=== PATIENT | female | born 1985 | race Caucasian/White ===

== ENCOUNTER 2016-12-17 21:59 | Observation (INO) | payer OTHER ==
[~2016-12-17] VITALS: Ht 162.6 cm; Wt 63.5 kg
--- NOTE | ~2016-12-17 | CON ---
PATIENT'S NAME: MALA MAGDALENO [facility] AGE: 31 Y [address] ROOM: [address]3216 [place], [place] [address] LOCATION: [facility] [place] ADMIT DATE: 12/18/2016 Consultation DISCHARGE DATE: FAMILY PHYSICIAN: PHYSICIAN, NO ATTENDING PHYSICIAN: JACE MONTAGUE V DATE OF CONSULTATION: 12/18/2016 REASON FOR CONSULTATION REASON FOR CONSULTATION: FUO and recent travel to [facility]. HISTORY: Ms. Magdaleno is a 31-year-old female, who is otherwise healthy. 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 She has a 7-year-old son at home. She recently took a trip to [facility] where she went to meet her jeremias's family. She was in a town called [facility], and she had flown into a town called [facility] and had visited his family in [facility]. She ate food with them, drink bottled water. She did not do any other activities, did not get in the water, did not eat for many street vendors. She did, however, get mosquito bites and had several of those. She was over there from the to 15 of December. On the way back, she flew to [facility] and was doing okay, but then she was became ill on the way back to [place]. It was a long flight, and her legs were swollen and her muscles ached. Initially, she thought she was just jet lag but did not think so after she started having fevers. She planned to do sight seeing in [place] but felt too ill and stayed in the hotel. Then, she had a 4-hour flight back to [place] and then drove home to [place]. She continued to have feel unwell, and her son asked her to take her temperature. She knows that she had a fever at that point in time. She has had mostly myalgias and arthralgias especially in her lower extremities. She has had a headache. She initially had a sore throat, but this seemed to be a little better with some Mucinex. She has some congestion as well, which improved. She has not had cough. She did have some shortness of breath when she was very congested, but this is better. She is having multiple loose stools that are malodorous. She does not have any abdominal pain. She does not have any urinary tract infection symptoms. She did take doxycycline for malaria prophylaxis while over there. She thinks she might have missed one day. She also did typhoid fever vaccine prior to travel. She otherwise has not had any sick contacts. She has not been at work obviously for the last few weeks. Her son is fine at home, and it is only 2 of them in the home. Infectious Disease was asked to see and assist with further evaluation. PAST MEDICAL HISTORY: Unremarkable. PATIENT'S NAME: MALA MAGDALENO [facility] AGE: 31 Y [address] ROOM: [address] [address] LOCATION: [facility] [place] ADMIT DATE: 12/18/2016 Consultation DISCHARGE DATE: FAMILY PHYSICIAN: PHYSICIAN, LASHAE ATTENDING PHYSICIAN: JACE MONTAGUE V MEDICATIONS: The only med she takes is doxycycline. ALLERGIES: NONE. SOCIAL HISTORY: She does not smoke, drink, use illicit drugs. FAMILY HISTORY: Noncontributory. REVIEW OF SYSTEMS: All remaining review of systems otherwise negative. Pertinent positives and negatives in the HPI. PHYSICAL EXAMINATION: GENERAL: She does not look toxic, a bit tired. She is awake, alert, and oriented. VITAL SIGNS: She has been intermittently febrile here, T-max was up to 103, most recently, she is 100.8; blood pressure is 96/51; pulse 91; respirations 14. HEENT: She has no conjunctiva hemorrhage or icterus. Oropharynx is clear without any exudates or erythema. NECK: Supple. LUNGS: Clear. Heart is regular. Little tachy. ABDOMEN: Soft, not tender, not distended. EXTREMITIES: Without cyanosis, clubbing, or edema. She does not have any inflamed joints. She has no rash. She does have a mosquito bite down by her left ankle. DATA: Hemoglobin is low at 9.8, white count 7.8, platelet counts 157, and differential is unremarkable. She did have a mild leukocytosis on presentation at 14.1. Sed rate is 23. Her potassium is 3.2, chloride is 112, glucose is 103, BUN 5, creatinine 0.5, albumin is 2.7. LFTs and alkaline phosphatase are normal. CRP was 13.8, CPK was 45. Rapid influenza was negative. Procalcitonin was 0.12. She has a malaria smear, which is pending. She has a dengue fever serology, which is pending. Chikungunya, which is pending. Blood cultures have no growth thus far. Chest x-ray showed no acute disease. ASSESSMENT AND PLAN: 1. Fever of unknown origin after recent travel to [facility]. She was PATIENT'S NAME: MALA MAGDALENO [facility] AGE: 31 Y [address] ROOM: [address] [address] LOCATION: [facility] [place] ADMIT DATE: 12/18/2016 Consultation DISCHARGE DATE: FAMILY PHYSICIAN: PHYSICIAN, NO ATTENDING PHYSICIAN: JACE MONTAGUE V on doxycycline prophylaxis for malaria and took typhoid fever vaccine prior to travel. Agree with checking a malaria smear. Need to certainly rule that out, but she was taking some prophylaxis so that makes that a little less likely. Dengue and chikungunya certainly are possible given her headache and joint complaints. Her fever pattern does not really fit malaria either, but it could fit a viral pathology. Her primary symptoms are the joint aches but also the prominent diarrhea. Traveler's diarrhea can occasionally be associated with fever at about 1 in 10 people or so. So, it was possible that that is what we are dealing with here. She has stool studies that are pending. We will start her on azithromycin 500 mg p.o. daily for 3 days and see if this has any impact on her diarrhea and her fevers while await other studies. Agree with holding other antibiotics for now, and we will treat her accordingly. Please call if there are any questions or if any results come back at [phone]. MD EDY MOONEY/jarvis /[id number] d: t: 12/19/16 0157, CONSULTATION REPORT
--- NOTE | ~2016-12-17 | HP ---
PATIENT'S NAME: MALA HOLLINGSWORTH [facility] AGE: 31 Y [address] [place] [facility] [place] [place], [place] [address] [place] [facility] [place]: 12/18/2016 History & Physical DISCHARGE DATE: FAMILY PHYSICIAN: PHYSICIAN, NO ATTENDING PHYSICIAN: JACE MONTAGUE V DATE OF SERVICE: CHIEF COMPLAINT: Febrile illness. HISTORY OF PRESENT ILLNESS: The patient is a previously healthy 31-year-old female. She travelled to [facility] in the [facility] to visit her boyfriend/fiance. She arrived to [facility] the on the 07 of December and returned back on the 14 of December via [place]. She initially felt some swelling in her legs as well as congestion upon completing her flight, but in the course of last 3 days developed worsening myalgias, arthralgias, as well as fevers up to 104.1. She denies any chest pain, shortness of breath, rashes, diaphoresis, or gastrointestinal symptoms. The patient received a typhoid vaccine and has been taking prophylactic doxycycline for her trip. In the ER, she was slightly febrile, and had a mostly unremarkable workup. REVIEW OF SYSTEMS: All systems have been reviewed and are negative aside from pertinent positives mentioned above. PAST MEDICAL HISTORY: The patient denies. PAST SURGICAL HISTORY: The patient denies. CURRENT MEDICATIONS: Doxycycline. FAMILY HISTORY: The father is at bedside and denies any pertinent medical history. PHYSICAL EXAMINATION: VITAL SIGNS: Blood pressure 100/50, temperature 100.8, heart rate is in 120s, saturating 97% on room air, and respirations 16. GENERAL: Appears as a well-developed, well-nourished, young female, in no acute distress, nontoxic, nondiaphoretic. PATIENT'S NAME: MALA HOLLINGSWORTH [facility] AGE: 31 Y [address] ROOM: [address] [address] [place] [facility] [place]: 12/18/2016 History & Physical DISCHARGE DATE: FAMILY PHYSICIAN: PHYSICIAN, NO ATTENDING PHYSICIAN: JACE MONTAGUE V NEUROLOGIC: Nonfocal. EYES: Exam shows no icterus. Extraocular movements are intact. LYMPHATIC: Shows no cervical lymphadenopathy. ENDOCRINE: Exam shows no thyromegaly. LUNGS: Clear to auscultation. HEART: Rate is tachycardic and regular. ABDOMEN: Soft, nontender, nondistended. : Reveals no costovertebral angle tenderness. VASCULAR: Reveals 2+ pedal pulses. No lower extremity edema. SKIN: Reveals no rashes. MUSCULOSKELETAL: Exam is unremarkable. PSYCHIATRIC: Reveals appropriate mood, cognition, and affect. LABORATORY DATA: Workup in the ER included an EKG, which shows sinus tachycardia. A biochemical profile that shows a sodium 134, potassium of 3.1 with a bicarb of 19, and anion gap of 12. White count is 14.1, hemoglobin is 11.9, platelets is 188, unremarkable coags, and procalcitonin is 0.1. Urinalysis is still pending. Chest x-ray is still pending. ASSESSMENT AND PLAN: This is a 31-year-old female who will be admitted for observation with febrile illness subsequent to travel to [place]. I think most likely the pathogens that we are dealing with here are: Possibly malaria. We will send her blood for a thin smear. We will also send HRP2 assay. The patient may also have chikungunya or dengue and we will send those antigens as well. We will provide with symptomatic support with intravenous hydration and Tylenol. We will request an Infectious Disease evaluation in the morning. Additional management will depend on clinical course. Time dedicated to this patient's encounter is 35 minutes. MD TIMOTHY MICHEL/jarvis /[id number] D: [id number] T: [id number] HISTORY & PHYSICAL
--- NOTE | ~2016-12-17 | ER ---
[facility] AGE: 31 Y [address] ROOM: [place] [address] LOCATION: [facility] [place] ADMIT DATE: 12/18/2016 ER/Outpatient Report DISCHARGE DATE: FAMILY PHYSICIAN: PHYSICIAN, NO ATTENDING PHYSICIAN: JACE MONTAGUE V Time of Arrival: 2159 hours. Time of Evaluation: 2226 hours. IDENTIFICATION: A 31-year-old female. CHIEF COMPLAINT: Fever. HISTORY OF PRESENT ILLNESS: The patient is a 31-year-old female, who traveled to [facility], December 05, 2016, to December 15, 2016. When she arrived back on December 15, 2016, she developed some congestion and cough, which has progressed to fever of 104.2 today at 7:45 p.m.; joint pain particularly in her knees and hips; headache; hot and cold flashes; congestion. Cough is nonproductive. She does have purulent nasal drainage. No abdominal pain, nausea, or vomiting. No back pain, no skin rashes, no ill contacts. Recent travel as noted above. PAST MEDICAL HISTORY: Allergies: Sulfa. CURRENT MEDICATIONS: Doxycycline for malaria prophylaxis. MEDICAL PROBLEMS: Denies. PRIOR SURGERIES: section. SOCIAL HISTORY: The patient lives in [place]. Tobacco use denies. Alcohol use, denies. Drug use, denies. ROS: All systems reviewed and negative other than what is noted in the HPI. She did have a typhoid vaccine prior to her travels and is taking the malaria prophylaxis. PATIENT'S NAME: [facility] AGE: 31 Y [address] ROOM: [place] [address] LOCATION: [facility] [place] ADMIT DATE: 12/18/2016 ER/Outpatient Report DISCHARGE DATE: FAMILY PHYSICIAN: PHYSICIAN, NO ATTENDING PHYSICIAN: JACE MONTAGUE V FAMILY HISTORY: No pertinent family history identified. PHYSICAL EXAMINATION: VITAL SIGNS: Height 5 feet 4 inches; weight 65.3 kg; blood pressure 100/54; pulse 122; respirations 18; temperature 100.8, tympanic; saturations 97% on room air. GENERAL: A 31-year-old female, in no acute distress. HEENT: Head: Normocephalic and atraumatic. Ears: TMs are translucent, both ears. Nose: Mucosa erythematous, congested. Purulent drainage is noted. She has no maxillary sinus tenderness, but she does have slight frontal sinus tenderness. Mouth: No lesions. Pharynx, mildly erythematous. No exudate. NECK: Supple. No lymphadenopathy. No nuchal rigidity. LUNGS: Clear to auscultation. Breath sounds are equal. No rhonchi, wheezes, or rales. HEART: Regular rate and rhythm. No heart sinus tachycardia. No murmur, rub, or gallop. ABDOMEN: Bowel sounds are present. Soft, nondistended, nontender. SKIN: [place], warm, and dry. No lesions or rashes noted. NEURO: The patient is alert and oriented x4. Cranial nerves 2 through 12 grossly intact. Motor strength 5/5 throughout. Sensation is intact to light touch. No lower extremity edema. LABORATORY DATA: Two-view chest x-ray, no acute process. Pending radiology over-read. An IV was initiated 500 mL. Normal saline bolus was provided, then 150 mL/h. EKG reveals sinus tachycardia at 126 beats per minute. Nonspecific ST-T wave changes are noted. No prior EKG available for comparison. Hemoglobin 11.9, hematocrit 36.2, platelets 188, white count 14.1 with 87% neutrophils. Sodium 134, potassium 3.1, chloride 103, CO2 19, BUN 5, creatinine 0.8, blood sugar 103. Liver enzymes are normal. CPK 45, CK-MB 0.8. Troponin I less than 0.040. Lactate 1.6. Procalcitonin 0.10. Blood cultures x2 pending. Influenza A and B negative. Malaria testing has been done and will be sent out lab for the dengue fever and chikungunya will also be tested for and those results are pending. IMPRESSION AND PLAN: 1. Febrile illness with temperature of 104.2 in the patient with recent travel to an area where malaria is endemic. Differential diagnosis includes malaria, chikungunya or dengue fever, as well as just a viral illness. Cultures have been drawn and the patient will be admitted per hospitalist. Dr. Montague evaluated her in the emergency room and plans for admission with Infectious Disease consult. 2. Sinus tachycardia. Plan IV hydration and antipyretics. 3. Hypokalemia. Potassium 3.1. PATIENT'S NAME: MALA HOLLINGSWORTH [facility] AGE: 31 Y [address] ROOM: [place] [address] LOCATION: [facility] [place] ADMIT DATE: 12/18/2016 ER/Outpatient Report DISCHARGE DATE: FAMILY PHYSICIAN: PHYSICIANLASHAE ATTENDING PHYSICIAN: JACE MONTAGUE V MD SHARMAINE SALDANA/romanl /[id number] d: 12/18/16 0436 t: 12/18/16 0549, OUTPATIENT REPORT
--- NOTE | ~2016-12-17 | CON ---
PATIENT'S NAME: MALA MAGDALENO [facility] AGE: 31 Y [address] ROOM: [address] [place], [place] [address] [place] [facility] [place]: 12/18/2016 Consultation DISCHARGE DATE: FAMILY PHYSICIAN: PHYSICIAN, NO ATTENDING PHYSICIAN: JACE MONTAGUE V DATE OF CONSULTATION: 12/18/2016 REASON FOR CONSULTATION REASON FOR CONSULTATION: FUO and recent travel to [facility]. HISTORY: Ms. Magdaleno is a 31-year-old female, who is otherwise healthy. 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 She has a 7-year-old son at home. She recently took a trip to [facility] where she went to meet her jeremias's family. She was in a town called [facility], and she had flown into a town called [facility] and had visited his family in [facility]. She ate food with them, drink bottled water. She did not do any other activities, did not get in the water, did not eat for many street vendors. She did, however, get mosquito bites and had several of those. She was over there from the to 15 of December. On the way back, she flew to [facility] and was doing okay, but then she was became ill on the way back to [place]. It was a long flight, and her legs were swollen and her muscles ached. Initially, she thought she was just jet lag but did not think so after she started having fevers. She planned to do sight seeing in [place] but felt too ill and stayed in the hotel. Then, she had a 4-hour flight back to [place] and then drove home to [place]. She continued to have feel unwell, and her son asked her to take her temperature. She knows that she had a fever at that point in time. She has had mostly myalgias and arthralgias especially in her lower extremities. She has had a headache. She initially had a sore throat, but this seemed to be a little better with some Mucinex. She has some congestion as well, which improved. She has not had cough. She did have some shortness of breath when she was very congested, but this is better. She is having multiple loose stools that are malodorous. She does not have any abdominal pain. She does not have any urinary tract infection symptoms. She did take doxycycline for malaria prophylaxis while over there. She thinks she might have missed one day. She also did typhoid fever vaccine prior to travel. She otherwise has not had any sick contacts. She has not been at work obviously for the last few weeks. Her son is fine at home, and it is only 2 of them in the home. Infectious Disease was asked to see and assist with further evaluation. PAST MEDICAL HISTORY: Unremarkable. PATIENT'S NAME: MALA MAGDALENO [facility] AGE: 31 Y [address] ROOM: [address] [address] [place] [facility] [place] DATE: 12/18/2016 Consultation DISCHARGE DATE: FAMILY PHYSICIAN: PHYSICIAN, LASHAE ATTENDING PHYSICIAN: JACE MONTAGUE V MEDICATIONS: The only med she takes is doxycycline. ALLERGIES: NONE. SOCIAL HISTORY: She does not smoke, drink, use illicit drugs. FAMILY HISTORY: Noncontributory. REVIEW OF SYSTEMS: All remaining review of systems otherwise negative. Pertinent positives and negatives in the HPI. PHYSICAL EXAMINATION: GENERAL: She does not look toxic, a bit tired. She is awake, alert, and oriented. VITAL SIGNS: She has been intermittently febrile here, T-max was up to 103, most recently, she is 100.8; blood pressure is 96/51; pulse 91; respirations 14. HEENT: She has no conjunctiva hemorrhage or icterus. Oropharynx is clear without any exudates or erythema. NECK: Supple. LUNGS: Clear. Heart is regular. Little tachy. ABDOMEN: Soft, not tender, not distended. EXTREMITIES: Without cyanosis, clubbing, or edema. She does not have any inflamed joints. She has no rash. She does have a mosquito bite down by her left ankle. DATA: Hemoglobin is low at 9.8, white count 7.8, platelet counts 157, and differential is unremarkable. She did have a mild leukocytosis on presentation at 14.1. Sed rate is 23. Her potassium is 3.2, chloride is 112, glucose is 103, BUN 5, creatinine 0.5, albumin is 2.7. LFTs and alkaline phosphatase are normal. CRP was 13.8, CPK was 45. Rapid influenza was negative. Procalcitonin was 0.12. She has a malaria smear, which is pending. She has a dengue fever serology, which is pending. Chikungunya, which is pending. Blood cultures have no growth thus far. Chest x-ray showed no acute disease. ASSESSMENT AND PLAN: 1. Fever of unknown origin after recent travel to [facility]. She was PATIENT'S NAME: MALA MAGDALENO [facility] AGE: 31 Y [address] ROOM: [address] [address] [place] [facility] [place] DATE: 12/18/2016 Consultation DISCHARGE DATE: FAMILY PHYSICIAN: PHYSICIAN, NO ATTENDING PHYSICIAN: JACE MONTAGUE V on doxycycline prophylaxis for malaria and took typhoid fever vaccine prior to travel. Agree with checking a malaria smear. Need to certainly rule that out, but she was taking some prophylaxis so that makes that a little less likely. Dengue and chikungunya certainly are possible given her headache and joint complaints. Her fever pattern does not really fit malaria either, but it could fit a viral pathology. Her primary symptoms are the joint aches but also the prominent diarrhea. Traveler's diarrhea can occasionally be associated with fever at about 1 in 10 people or so. So, it was possible that that is what we are dealing with here. She has stool studies that are pending. We will start her on azithromycin 500 mg p.o. daily for 3 days and see if this has any impact on her diarrhea and her fevers while await other studies. Agree with holding other antibiotics for now, and we will treat her accordingly. Please call if there are any questions or if any results come back at [phone]. MD EDY MOONEY/jarvis /[id number] d: 12/19/16 0133 t: 01/28/17 1103, CONSULTATION REPORT
--- NOTE | ~2016-12-17 | DS ---
PATIENT'S NAME: MALA HOLLINGSWORTH [facility] AGE: 31 Y [address] ROOM: [address] [place], [place] [address] LOCATION: [facility] [place] ADMIT DATE: 12/18/2016 Discharge Summary DISCHARGE DATE: 12/19/2016 FAMILY PHYSICIAN: PHYSICIAN, NO ATTENDING PHYSICIAN: Nate Archer V FINAL DIAGNOSES: 1. Diarrhea, presumed traveler's diarrhea. 2. Fever secondary to diarrhea. 3. Hypokalemia. Please see the history and physical dictated by Dr. Archer for details of admission. Basically, the patient returned from a trip to [facility] with fever and diarrhea. LABORATORY DATA: On admission, sodium 134, potassium 3.1, BUN 5, and creatinine 0.8. Liver enzymes were normal. Most prior to discharge, sodium 143, potassium 3.6, chloride 115, CO2 22, BUN 4, creatinine 0.4. Magnesium 2. White blood cell count on admission was 14.1, hemoglobin 11.9, hematocrit 36.2, and platelet count 188. Normal differential. Most prior to discharge, white blood cell count 7.8. Prolactin on admission was 0.1. Influenza A and B were negative. Send out labs that are pending, malarial smear and other viral studies. Urinalysis on admission did not show any evidence of infection. She is beta- HCG negative. X-RAY DATA: Chest x-ray was negative. HOSPITAL COURSE: The patient was admitted with a febrile illness. She was placed on IV hydration and studies were done to evaluate for infections that would be endemic to the area that she studied. The studies were done to evaluate for Chikungunya infection as well as Dengue fever. A malarial smear for malaria was obtained. She was given aggressive hydration. She was hypokalemic and this was replaced. A stool for C. diff was done, as she had been on doxycycline as malarial prophylaxis. She was seen by ID and started on azithromycin 500 mg daily for 3 days for presumed traveler's diarrhea. After she received that, her diarrhea markedly improved. She was able to the eat and drink. Her fever did break. She had had a total of 19 stools in 1 day. It was felt that once she had slowed down to having 2 stools that she was stable for discharge and she too felt like she wanted to go home. DISCHARGE INSTRUCTIONS: To follow up with PCP or Urgent Care Clinic if her symptoms worsened. She is to eat yogurt daily. To avoid fruit juice, fresh fruit, raw vegetables until her bowels have returned to baseline. She is to call the hospitalist's office in 1 week to follow up on her lab results. PATIENT'S NAME: MALA HOLLINGSWORTH [facility] AGE: 31 Y [address] ROOM: [place] [address] LOCATION: [facility] [place] ADMIT DATE: 12/18/2016 Discharge Summary DISCHARGE DATE: 12/19/2016 FAMILY PHYSICIAN: PHYSICIAN, NO ATTENDING PHYSICIAN: Nate Archer V MEDICATIONS: 1. Azithromycin 500 mg daily, last dose will be December 20. 2. Humibid LA 600 mg every 12 hours. 3. Multivitamin daily. 4. Doxycycline 100 mg daily and to finish as she had been directed. 5. Align or generic equivalent probiotic [id number] as recommended on the bottle. This was discussed with the patient, and she did voice understanding. KARRIE DOWNING MD LAW/modl /[id number] d: 12/20/16 0145 t: 12/20/16 193, DISCHARGE SUMMARY
[2016-12-17 23:07] LABS: BASOPHIL % 0.2 %; HEMATOCRIT 36.2 % (33.0-46.0); HEMOGLOBIN 11.9 g/dL (11.0-15.0); IMMATURE GRANULOCYTE # 0.1 K/uL (0.0-0.3); IMMATURE GRANULOCYTE % 0.4 %; LYMPHOCYTE # 1.3 K/uL (0.8-4.0); LYMPHOCYTE % 8.9 %; MCH 26.6 pg (27.0-34.0); MCHC 32.9 gm/dL (32.0-36.5); MCV 80.8 fl (83.0-98.0); MONOCYTE # 0.5 K/uL (0.0-1.0); MONOCYTE % 3.3 %; MPV 10.3 fl (9.4-12.4); NEUTROPHIL # (ANC) 12.3 K/uL (1.8-7.8); NEUTROPHIL % 87.2 %; NRBC % 0 /100WBC (0-0.00); PLATELET COUNT 188 K/uL (150-450); RBC 4.48 M/uL (3.50-5.50); RDW-CV 12.9 % (11.9-14.6); WBC 14.1 K/uL (4.0-11.0)
[2016-12-17 23:25] LABS: ALBUMIN 3.6 gm/dL (3.5-5.0); ALK PHOS 70 IU/L (33-138); ALT 33 IU/L (12-78); ANION GAP 15.1 (10.0-19.0); AST 18 IU/L (10-40); BLOOD UREA NITROGEN 5 mg/dL (6-24); CALCIUM 7.9 mg/dL (8.5-10.5); CHLORIDE 103 mMol/L (96-110); CO2 19 mMol/L (22-32); CPK 45 IU/L (21-215); CREATININE 0.8 mg/dL (0.5-1.1); ESTIMATED GFR (MDRD EQUATION) > 60; INR - (THERAPEUTIC) 1.13 (0.92-1.07); POTASSIUM 3.1 mMol/L (3.7-5.1); PROTIME 11.9 SECONDS (9.8-11.4); PTT 28 SECONDS (25-32); SODIUM 134 mMol/L (135-145); TOTAL BILIRUBIN 0.6 mg/dL (0.0-1.5); TOTAL PROTEIN 7.3 g/dL (6.0-8.4)
[2016-12-18 00:42] LABS: BILIRUBIN URINE NEGATIVE (NEGATIVE); BLOOD URINE 10 /UL (NEGATIVE); COLOR URINE YELLOW (YELLOW); GLUCOSE URINE NEGATIVE (NEGATIVE); KETONE URINE 50 mg/dL (NEGATIVE); LEUKOCYTES URINE 25 /UL (NEGATIVE); NITRITE URINE NEGATIVE (NEGATIVE); PROTEIN URINE 15 mg/dL (NEGATIVE); TURBIDITY URINE CLEAR (CLEAR); UROBILINOGEN URINE NORMAL (NORMAL)
[2016-12-18 01:03] LABS: BACTERIA URINE FEW (NEGATIVE); EPITHELIAL URINE 20-50 #/HPF (NEGATIVE); RBC URINE RARE #/HPF (NEGATIVE); WBC URINE 0-2 #/HPF (NEGATIVE)
[2016-12-18] MEDS ORDERED: DOXYCYCLINE100 MG PO (01:26)
[2016-12-18] MEDS ORDERED: HUMIBID LA (MU600 MG PO (01:27)
[2016-12-18] MEDS ORDERED: MULTI VITAMIN1 EACH PO (01:28)
--- NOTE | 2016-12-18 02:01 | NUR ---
Pt admitted from ER for febrile illness. Pt was recently in [facility] from 12/05/16-12/15/16. Had a 22 hour flight back home on Friday12/15/16. Once she got back she developed congestion x2 days. She thought it was something it caught on the plane back because a lot of people were coughing and sneezing. Today she develped joint pain, headache, and fever. She took ibuprofen at home around 1545 for a low grade temp. she took tylenol at home around 1945 for a temp of 104.2, then came to the ER. Temp in ER 100.8. She is taking doxcycline prophylatically which she started prior to her [place] trip. Heart rate was 120's in ER. EKG done showed sinus tach. Cardiac enzymes were negative. Lactate 1.6 Influenza test was negative. They did send out blood tests checking for malaria and dengue fever. 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 Only surgical history is . Allergy to sulfa.
--- NOTE | 2016-12-18 05:13 | NUR ---
Significant Event: Pt alert and oriented. Cooperative with cares. Has not slept. Pt states she just doesn't feel well. Continues to have pain in bilateral hips and headache. Denies need for any medications. Pt states "I don't want narcotics." New IV started and fluids infusing without difficulty. Pt tolerating PO well without any nausea. Started to have diarrhea. Stool collected for c-diff. Pt states she did take a dulcolax yesterday for some constipation though. Temp max was 102.7. Heart rate continues to be tachycardic. Blood pressure within normal limits. Up with stand by assist. Pt is weak. ID doctor to consult today. Follow up:
--- NOTE | 2016-12-18 11:46 | NUR ---
RECEIVED REFERRAL FROM PATIENT'S NURSE THAT [employer] VOICES CONCERNS ABOUT POSSIBILTY OF NOT HAVING INSURANCE. SHE TELLS HER NURSE THAT THE DAY THEY WERE SUPPOSE TO SIGN UP FOR INSURANCE THAT SHE WAS NOT THERE AND THAN SHE WENT ON VACATION. I MADE REFERRAL TO JOSÉ WITH [employer]. WILL CONT TO FOLLOW NEEDED.
[2016-12-18 16:08] LABS: BASOPHIL % 0.1 %; EOSINOPHIL % 0.1 %; HEMOGLOBIN 9.8 g/dL (11.0-15.0); IMMATURE GRANULOCYTE % 0.4 %; LYMPHOCYTE # 1.6 K/uL (0.8-4.0); LYMPHOCYTE % 20.2 %; MCH 26.4 pg (27.0-34.0); MCHC 32.7 gm/dL (32.0-36.5); MCV 80.9 fl (83.0-98.0); MONOCYTE # 0.4 K/uL (0.0-1.0); MONOCYTE % 4.9 %; MPV 10.3 fl (9.4-12.4); NEUTROPHIL # (ANC) 5.8 K/uL (1.8-7.8); NEUTROPHIL % 74.3 %; NRBC % 0 /100WBC (0-0.00); PLATELET COUNT 157 K/uL (150-450); RBC 3.71 M/uL (3.50-5.50); WBC 7.8 K/uL (4.0-11.0)
[2016-12-18 16:24] LABS: ALBUMIN 2.7 gm/dL (3.5-5.0); ALK PHOS 51 IU/L (33-138); ALT 25 IU/L (12-78); ANION GAP 8.2 (10.0-19.0); AST 14 IU/L (10-40); BLOOD UREA NITROGEN 5 mg/dL (6-24); CHLORIDE 112 mMol/L (96-110); CO2 23 mMol/L (22-32); CREATININE 0.5 mg/dL (0.5-1.1); ESTIMATED GFR (MDRD EQUATION) > 60; MAGNESIUM 2.1 mg/dL (1.8-2.6); POTASSIUM 3.2 mMol/L (3.7-5.1); SODIUM 140 mMol/L (135-145); TOTAL PROTEIN 5.6 g/dL (6.0-8.4)
[2016-12-18 16:25] LABS: CALCIUM 7.4 mg/dL (8.5-10.5); TOTAL BILIRUBIN 0.4 mg/dL (0.0-1.5)
--- NOTE | 2016-12-18 17:37 | NUR ---
Significant Event: Patient up to bathroom and back to bed ad albert. Has had headache off and on throughout the day. Tylenol given last at 1703 for complaint of headache. Patient given motrin at 0914 and after patient able to sleep she stated that this really helped her body aches and headache. Also gave patient a pepsi as patient is used to having caffiene throughout the day. Usually drinks coffee but thought that pepsi sounded better for now. Still having complaints of loose stools. Told Dr. Sanders of this and she is wanting another stool sample sent for testing. First stool sample was sent for cdiff and is negative. Patient also received 40 meq IV of potassium chloride for low potassium of 3.1. Recheck this afternoon was 3.2. Dr. Sanders notified and order received for an oral dose of potassium. Orders were faxed at 1745 but will need to be given on night clerk. Follow up: Continue to monitor.
--- NOTE | 2016-12-19 04:17 | NUR ---
Significant Event: Pt alert and Oriented x3. Cooperative with cares. Hypotensive other VSS. RA. Afebrile through out the shift. Complaints of headache tylenol and motrin helped. states she feels a little bit better. Multiple loose stools. Complaints of abdominal pain. c-diff negative. regular diet, encourage yogurt. independent in room will call if feeling weak. 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 started on Zithromax PO and home doxcyclin in Med room. Follow up:
[2016-12-19 05:52] LABS: ANION GAP 9.6 (10.0-19.0); BLOOD UREA NITROGEN 4 mg/dL (6-24); CHLORIDE 115 mMol/L (96-110); CO2 22 mMol/L (22-32); CREATININE 0.4 mg/dL (0.5-1.1); ESTIMATED GFR (MDRD EQUATION) > 60; POTASSIUM 3.6 mMol/L (3.7-5.1); SODIUM 143 mMol/L (135-145)
[2016-12-19 05:55] LABS: CALCIUM 7.3 mg/dL (8.5-10.5)
--- NOTE | 2016-12-19 13:08 | NUR ---
SPOKE TO PATIENT REGARDING CM AND OUR ROLE. PATIENT VOICES CONCERNS ABOUT HER INSURANCE SHE WAS IN PROCESS OF GETTING A DIFFERENT INSURANCE AT HER WORK PLACE AND SHE WAS NOT THERE WHEN THEY HAD THE MEETINGS ABOUT IT. I RECEIVED CALL FROM JOSÉ WITH [employer] AND SHE REPORTS THAT THEY WERE ABLE TO LOOK IT UP ON LINE AND IT SHOWS THAT MALA HAS [employer] INSURANCE. I UPDATED HER OF THIS AND SHE TELLS ME SHE DOES NOT KNOW WHAT KIND OF BENEFITS SHE HAS. I ENCOURAGED HER TO CALL HER WORK PLACE AND SEE IF THEY CAN FAX HER SOME INFO AND I GAVE HER THE FAX NUMBER FOR [employer]. SHE TELLS ME THAT SHE WILL CALL THEM. PATIENT DENIES ANY OTHER NEEDS OR CONCERNS AT THIS TIME.
[2016-12-19] MEDS ORDERED: ZITHROMAX250 MG PO (17:08)
[2016-12-19] MEDS ORDERED: ALIGN4 MG PO (17:09)
[2016-12-19] MEDS ORDERED: TYLENOL325 MG PO (17:09)
--- NOTE | 2016-12-19 17:09 | NUR ---
Significant Event: Patient is alert and oriented x3. VSS and on RA. Will be dismissing at 1900 when her mom gets here. Headache on and off throughout the day. Tylenol given x2, relief noted. IV in the R)[facility]. Cooperative with cares.
--- NOTE | 2016-12-19 18:14 | NUR ---
DISCHARGE: Pt. was explained discharge instructions, educated on treatment of diarrhea and new medications. Verbalized understanding, no questions or concerns. Home medications returned to her, scripts given. Will leave with mother when she arrives at 1900.
== END 2016-12-19 19:35 | disposition disaster alternative care site (69) ==
LOC: GMED 21:59 → GMSU 12-18 00:40
PROVIDERS: Family Medicine; Internal Medicine; Physician Assistant; ADMIT Internal Medicine
DX: R19.7 Diarrhea, unspecified (principal); R50.9 Fever, unspecified; E87.6 Hypokalemia; R00.0 Tachycardia, unspecified; Z79.899 Other long term (current) drug therapy
CPT/HCPCS: G0378; J3480; J7030; J7050